=== PATIENT | female | born 1950 | race Caucasian/White ===

== ENCOUNTER → 2018-09-04 | Outpatient (CLI) | payer MEDICARE, OTHER ==
[~2018-09-04] MED LIST: 0.9 % SODIUM CHLORIDE 10 ML VIAL ONE; IOHEXOL 300 MG/ML 50 ML VIAL. ONE; LIDOCAINE 1% PF 30 ML VIAL. ONE; methylPREDNISolone ACETATE 80 MG/ML VIAL. ONE
== END | disposition home or self-care (01) ==
LOC: SURG 09:33
PROVIDERS: ATTEND Anesthesiology Pain Medicine
DX: M54.16 Radiculopathy, lumbar region (principal); G43.909 Migraine, unspecified, not intractable, without status migrainosus; E78.5 Hyperlipidemia, unspecified; Z98.890 Other specified postprocedural states; Z79.899 Other long term (current) drug therapy; Z91.040 Latex allergy status; M19.90 Unspecified osteoarthritis, unspecified site
CPT/HCPCS: 62323; J1040; J2001; Q9967

== ENCOUNTER → 2018-10-02 | Outpatient (CLI) | payer MEDICARE ==
[~2018-10-02] MED LIST changes: -0.9 % SODIUM CHLORIDE 10 ML VIAL ONE; +BUPIVACAINE MPF 0.25% 10 ML VIAL. ONE; -IOHEXOL 300 MG/ML 50 ML VIAL. ONE; -methylPREDNISolone ACETATE 80 MG/ML VIAL. ONE
== END | disposition home or self-care (01) ==
LOC: SURG 12:51
PROVIDERS: ATTEND Anesthesiology Pain Medicine
DX: M79.18 Myalgia, other site (principal); E78.5 Hyperlipidemia, unspecified; G43.909 Migraine, unspecified, not intractable, without status migrainosus; Z98.890 Other specified postprocedural states; Z79.899 Other long term (current) drug therapy; M47.816 Spondylosis without myelopathy or radiculopathy, lumbar region; Z91.040 Latex allergy status
CPT/HCPCS: 20553; J2001; J3490

== ENCOUNTER → 2019-06-02 | Outpatient (CLI) | payer MEDICARE ==
--- NOTE | 2019-06-17 10:38 | RAD ---
DATE: 06/02/2019. EXAM: MAMMO MAIRA SCREENING BILATERAL. HISTORY: Routine mammographic screening. COMPARISON: 12/07/2009. This study was interpreted with the benefit of Computerized Aided Detection (CAD). FINDINGS: Breast Density: SCATTERED The breast parenchyma shows scattered fibroglandular densities. Breast parenchyma level B.. Parenchymal density has decreased. Scattered calcifications are benign. There are no suspicious masses, microcalcifications or architectural distortion. BI-RADS CATEGORY: 2 BENIGN FINDING(S). RECOMMENDED FOLLOW-UP: 12M 12 MONTH FOLLOW-UP. PQRS compliance statement: Patient information was entered into a reminder system with a target due date 06/02/2020 for the next mammogram. Mammography is a sensitive method for finding small breast cancers, but it does not detect them all and is not a substitute for careful clinical examination. A negative mammogram does not negate a clinically suspicious finding and should not result in delay in biopsying a clinically suspicious abnormality. "Our facility is accredited by the [employer] Mammography Program."
== END | disposition home or self-care (01) ==
LOC: MAMMO 09:16
PROVIDERS: ATTEND Physician Assistant Medical
DX: Z12.31 Encounter for screening mammogram for malignant neoplasm of breast (principal)
CPT/HCPCS: 77063; 77067

== ENCOUNTER → 2019-09-22 | Day surgery (SDC) | payer MEDICARE ==
[~2019-09-22] MED LIST changes: +ALBUTEROL SULFATE 2.5 MG/3 ML NEBU. NEB PRN; +ATROPINE 0.5 MG/5 ML DISP.SYRIN. IV PRN; -BUPIVACAINE MPF 0.25% 10 ML VIAL. ONE; +ETOD500T PO; +GABA-586 PO; +HYDR-3165 PO; +IV RINGERS SOLUTION,LACTATED 1,000 ML IV SCH; -LIDOCAINE 1% PF 30 ML VIAL. ONE; +ONDANSETRON PF 4 MG/2 ML VIAL. IV PRN; +PHENOL ORAL SPRAY 177ML BOTTLE. MM PRN; +PRAV20TA2 PO; +PROPOFOL 20 ML IV ONE; +SUMA100T3 PO; +diphenhydrAMINE 50 MG/ML VIAL IV PRN
[2019-09-22 09:10] VITALS: BP 115/70
== END ==
LOC: SURG 07:37
PROVIDERS: ATTEND Internal Medicine Gastroenterology
DX: Z12.11 Encounter for screening for malignant neoplasm of colon (principal); K63.89 Other specified diseases of intestine; E78.5 Hyperlipidemia, unspecified; E66.9 Obesity, unspecified; Z68.35 Body mass index [BMI] 35.0-35.9, adult; Z87.39 Personal history of other diseases of the musculoskeletal system and connective tissue; Z88.0 Allergy status to penicillin
CPT/HCPCS: G0121; J2704; J7120; 45378; G0105

== ENCOUNTER → 2020-07-20 | Day surgery (SDC) | payer MEDICARE ==
[~2020-07-20] MED LIST changes: -ALBUTEROL SULFATE 2.5 MG/3 ML NEBU. NEB PRN; -ATROPINE 0.5 MG/5 ML DISP.SYRIN. IV PRN; +BUPIVACAINE MPF 0.25% 10 ML VIAL. ONE; +IOHEXOL 300 MG/ML 50 ML VIAL. ONE; -IV RINGERS SOLUTION,LACTATED 1,000 ML IV SCH; +LIDOCAINE 1% PF 30 ML VIAL. ONE; -ONDANSETRON PF 4 MG/2 ML VIAL. IV PRN; -PHENOL ORAL SPRAY 177ML BOTTLE. MM PRN; -PROPOFOL 20 ML IV ONE; -diphenhydrAMINE 50 MG/ML VIAL IV PRN
[2020-07-20 12:04] VITALS: BP 157/74
== END | disposition home or self-care (01) ==
LOC: SURG 11:17
PROVIDERS: ATTEND Anesthesiology
DX: M47.812 Spondylosis without myelopathy or radiculopathy, cervical region (principal); G43.909 Migraine, unspecified, not intractable, without status migrainosus; E78.5 Hyperlipidemia, unspecified; M47.816 Spondylosis without myelopathy or radiculopathy, lumbar region; M19.90 Unspecified osteoarthritis, unspecified site; E66.9 Obesity, unspecified; Z68.35 Body mass index [BMI] 35.0-35.9, adult; Z98.890 Other specified postprocedural states; Z88.8 Allergy status to other drugs, medicaments and biological substances; Z79.899 Other long term (current) drug therapy; Z88.0 Allergy status to penicillin; Z91.040 Latex allergy status; Z87.39 Personal history of other diseases of the musculoskeletal system and connective tissue
CPT/HCPCS: 64490; 64491; J2001; J3490; Q9967